=== PATIENT | female | born 1985 | race Caucasian/White ===

== ENCOUNTER 2016-12-09 06:49 | Emergency (ER) | payer BC ==
[~2016-12-09] VITALS: Ht 160 cm; Wt 48.0 kg
[2016-12-09 06:51] VITALS: Ht 160 cm; Wt 48.0 kg
[2016-12-09] MEDS ORDERED: ELIM TOP (07:10)
[2016-12-09] MEDS ORDERED: DIPH25CA6 PO (07:10)
--- NOTE | 2016-12-09 07:14 | ERD ---
ER Documentation Chief Complaint Date/Time DATE: 12/09/16 TIME: 07:11 Chief Complaint rashes @ right chest area and bilateral legs - possible insect bites HPI 31-year-old female presents the emergency room complaining of an itchy rash on her hands and trunk. She thinks she may have had bedbugs at home. She denies fevers, chills or new exposures. ROS All systems reviewed and are negative except as per history of present illness. Medications Home Meds Active Scripts Diphenhydramine Hcl* (Diphenhydramine Hcl*) 25 Mg Capsule, 25 MG PO Q6 Y for ITCHING, #20 CAP Prov:JESSE HACKETT 12/09/16 Permethrin* (Elimite*) 5% Cr, 1 APPLIC TOP ONCE for 1 Day, TUB Prov:JESSE HACKETT 12/09/16 Allergies Allergies: Coded Allergies: No Known Allergy (Verified Allergy, Unknown, 09/12/09) PMhx/Soc History of Surgery: Yes (ANKLE SURGERY ) Anesthesia Reaction: No Hx Psychiatric Problems: Yes (anxiety) Hx Alcohol Use: Yes Hx Substance Use: Yes Hx Tobacco Use: No Smoking Status: Never smoker FmHx Noncontributory for chief complaint Physical Exam Vitals Vital Signs Date Time Temp Pulse Resp B/P Pulse Ox O2 Delivery O2 Flow Rate FiO2 12/09/16 06:51 71 19 117/75 99 Physical Exam General: well developed, well nourished, in no distress. Neuro: Normal speech, gait, balance Skin: Patient has a diffuse, pink maculopapular type infestation type rash most noted about the right anterior chest, the back legs, the left hand. She has no signs of secondary excoriations or infection. No involvement of the mucous membranes. Procedures/MDM Patient was taken to a room, seen and examined Medical decision makin-year-old otherwise healthy female presents with what appears to be a bedbug infestation. Patient shows no signs of systemic concerns. She will be treated empirically with Elimite and Benadryl. She is otherwise clinically nontoxic and appropriate for outpatient care. Departure Diagnosis: Primary Impression: Bug bites Condition: Stable Patient Instructions: Bedbug Bites Additional Instructions: Please come see us if this is not getting better in the next 3 days or if there is any worsening JESSE HACKETT Dec 09, 2016 07:14
== END 2016-12-09 07:39 | disposition home or self-care (01) ==
LOC: FTE 06:49
DX: S20.361A Insect bite (nonvenomous) of right front wall of thorax, initial encounter (principal); S60.562A Insect bite (nonvenomous) of left hand, initial encounter; S80.862A Insect bite (nonvenomous), left lower leg, initial encounter; S80.861A Insect bite (nonvenomous), right lower leg, initial encounter; W57.XXXA Bitten or stung by nonvenomous insect and other nonvenomous arthropods, initial encounter; Y92.9 Unspecified place or not applicable
CPT/HCPCS: 99283

== ENCOUNTER 2018-10-11 07:40 | Emergency (ER) | payer BC ==
[~2018-10-11] VITALS: Ht 165.1 cm; Wt 49.5 kg
[~2018-10-11 07:40] MED LIST: DIPH25CA6 PO; ELIM TOP
[2018-10-11 07:46] VITALS: BP 134/65; PULSE 71; RESP 20; Ht 165.1 cm; Wt 49.5 kg
[2018-10-11] MEDS ORDERED: NITR-58 PO (09:38)
[2018-10-11] MEDS ORDERED: PHEN-537 PO (09:38)
--- NOTE | 2018-10-11 10:44 | ERD ---
ER Documentation Chief Complaint Chief Complaint Complains of problems urinating since last night HPI 33-year-old female presents to the ED complaining of pain with urination. Patient states that the pain began Monday afternoon. She tried some [id number] pain medication and supplements in hopes of relieving her symptoms, however, her symptoms have persisted. She states she continues to have pain with urination and some pain at rest. Patient denies any flank pain, fever, chills, nausea, vomiting, vaginal pain, vaginal discharge, abnormal vaginal bleeding, or pelvic pain. She denies any pertinent past medical history. She denies any allergies to medication. Denies tobacco, alcohol and drugs. ROS All systems reviewed and are negative except as per history of present illness. Medications Home Meds Active Scripts Phenazopyridine Hcl* (Pyridium*) 100 Mg Tab, 100 MG PO TID PRN for URINARY PAIN, #8 TAB Prov:JANAE MATHEWS PA-C 10/11/18 Nitrofurantoin Monohyd Macrocr* (Macrobid*) 100 Mg Capsr, 100 MG PO BID for 7 Days, CAP Prov:JANAE MATHEWS PA-C 10/11/18 Diphenhydramine Hcl* (Diphenhydramine Hcl*) 25 Mg Capsule, 25 MG PO Q6 PRN for ITCHING, #20 CAP Prov:JESSE HACKETT 12/09/16 Permethrin* (Elimite*) 5% Cr, 1 APPLIC TOP ONCE for 1 Day, TUB Prov:JESSE HACKETT 12/09/16 Allergies Allergies: Coded Allergies: No Known Allergy (Verified Allergy, Unknown, 09/12/09) PMhx/Soc History of Surgery: Yes (ANKLE SURGERY ) Anesthesia Reaction: No Hx Psychiatric Problems: Yes (anxiety) Hx Alcohol Use: Yes Hx Substance Use: Yes Hx Tobacco Use: No Smoking Status: Never smoker FmHx Family History: No diabetes, No coronary disease Physical Exam Vitals Vital Signs Date Temp Pulse Resp B/P (MAP) Pulse Ox O2 O2 Flow FiO2 Time Delivery Rate 10/11/18 97.4 71 20 134/65 100 07:46 (88) Physical Exam Const: No acute distress Head: Atraumatic Eyes: Normal Conjunctiva ENT: Normal External Ears, Nose and Mouth. Neck: Full range of motion. No meningismus. Resp: Clear to auscultation bilaterally Cardio: Regular rate and rhythm, no murmurs Abd: Soft, non tender, non distended. Normal bowel sounds. Negative McBurney's point. Skin: No petechiae or rashes Back: No midline or flank tenderness Ext: No cyanosis, or edema Neur: Awake and alert Psych: Normal Mood and Affect Results 24 hrs Laboratory Tests Test 10/11/18 08:28 10/11/18 08:29 Bedside Urine pH (LAB) 6.5 Bedside Urine Protein (LAB) Negative Bedside Urine Glucose (UA) Negative Bedside Urine Ketones (LAB) Negative Bedside Urine Blood 1+ Bedside Urine Nitrite (LAB) Negative Bedside Urine Leukocyte Esterase (L 2+ POC Beta HCG, Qualitative NEGATIVE Procedures/MDM This is a otherwise healthy 33-year-old female who presents to the ED complain ing of dysuria. Due to the presence of leukocytes and white blood cells in her urine, the patient will be treated for UTI. She will be discharged with a prescription for Macrobid and Pyridium. I have a low suspicion for pyelonephritis, PID, sexually transmitted infections, septic renal stone, nephrolithiasis, or other acute abdomen emergencies. Diagnosis: UTI Discharge medications: Pyridium, Macrobid Follow up with primary care physician in 1-2 days. Instructed patient to return to the ED sooner for any worsening symptoms. Patient's questions were answered. Patient is hemodynamically stable. Patient understood and agreed with discharge plan. Patient discharged stable. Disclaimer: Inadvertent spelling and grammatical errors are likely due to EHR/dictation software use and do not reflect on the overall quality of patient care. Also, please note that the electronic time recorded on this note does not necessarily reflect the actual time of the patient encounter. Departure Diagnosis: Primary Impression: Dysuria Condition: Stable Patient Instructions: Urinary Tract Infections in Women Referrals: COMMUNITY CLINICS YOU HAVE RECEIVED A MEDICAL SCREENING EXAM AND THE RESULTS INDICATE THAT YOU DO NOT HAVE A CONDITION THAT REQUIRES URGENT TREATMENT IN THE EMERGENCY DEPARTMENT. FURTHER EVALUATION AND TREATMENT OF YOUR CONDITION CAN WAIT UNTIL YOU ARE SEEN IN YOUR DOCTORS OFFICE WITHIN THE NEXT 1-2 DAYS. IT IS YOUR RESPONSIBILITY TO MAKE AN APPOINTMENT FOR FOLOW-UP CARE. IF YOU HAVE A PRIMARY DOCTOR --you should call your primary doctor and schedule an appointment IF YOU DO NOT HAVE A PRIMARY DOCTOR YOU CAN CALL OUR PHYSICIAN REFERRAL HOTLINE AT IF YOU CAN NOT AFFORD TO SEE A PHYSICIAN YOU CAN CHOSE FROM THE FOLLOWING [facility] CLINICS [facility] [phone] [facility] [address] [facility] [facility]. [facility] [address] [facility] [phone] [facility] [phone] [address] [facility]. [facility] [address] [facility]. [facility] YOU HAVE RECEIVED A MEDICAL SCREENING EXAM AND THE RESULTS INDICATE THAT YOU DO NOT HAVE A CONDITION THAT REQUIRES URGENT TREATMENT IN THE EMERGENCY DEPARTMENT. FURTHER EVALUATION AND TREATMENT OF YOUR CONDITION CAN WAIT UNTIL YOU ARE SEEN IN YOUR DOCTORS OFFICE WITHIN THE NEXT 1-2 DAYS. IT IS YOUR RESPONSIBILITY TO MAKE AN APPOINTMENT FOR FOLOW- CARE. IF YOU HAVE A PRIMARY DOCTOR --you should call your primary doctor and schedule and appointment IF YOU DO NOT HAVE A PRIMARY DOCTOR YOU CAN CALL OUR PHYSICIAN REFERRAL HOTLINE AT . IF YOU CAN NOT AFFORD TO SEE A PHYSICIAN YOU CAN CHOSE FROM THE FOLLOWING [facility] INSTITUTIONS: [facility] [address] [place] [address] [facility] [address] [place] [address] [facility] [address] [place] [address] [facility] [employer] [place] [address] [facility] [address] [place], [place] [phone] OFFICE FAX , [place] [address] [place] [address] [address] RECINOS [place] [address] [place], [place] [phone] [facility] [address] [facility] [address] [address] [address] [place], [place] [phone] [facility] [address] [place], [place] [phone] [facility] [address] - RAMY DIANE [address] [facility] [address] [address] GILBERT, [place] [address] [facility] [address], [facility] [address] [place] [address] [place], [place] [phone] [facility] Hours: 8:00 am - 5:00 pm Additional Instructions: Call your primary care doctor TOMORROW for an appointment during the next 2-3 days.See the doctor sooner or return here if your condition worsens before your appointment time. JANAE MATHEWS PA-C Oct 11, 2018 10:44
== END 2018-10-11 09:42 | disposition home or self-care (01) ==
LOC: FTE 07:40
DX: R30.0 Dysuria (principal)
CPT/HCPCS: 81003; 81025; 99283